=== PATIENT | male | born 1995 | race Caucasian/White ===

== ENCOUNTER 2021-11-16 11:44 | Emergency (ER) | payer OTHER ==
[2021-11-16] MEDS ORDERED: AMOX TR-K CLV1 EAC4 PO (14:01)
== END 2021-11-16 14:17 | disposition home or self-care (01) ==
LOC: FER 11:44
DX: S92.421A Displaced fracture of distal phalanx of right great toe, initial encounter for closed fracture (principal); Z87.891 Personal history of nicotine dependence; Z23 Encounter for immunization; W22.03XA Walked into furniture, initial encounter; Y92.009 Unspecified place in unspecified non-institutional (private) residence as the place of occurrence of the external cause
CPT/HCPCS: 73630; 90471; 90715; J1100; J8540